=== PATIENT | male | born 1955 | race Caucasian/White ===

== ENCOUNTER 2018-06-18 12:57 | Emergency (ER) | payer SELFPAY ==
[~2018-06-18] VITALS: Ht 185.4 cm; Wt 113.0 kg
[2018-06-18] MEDS ORDERED: IBUPROFEN 600MG TABLET PO ONE (15:45)
[2018-06-18 16:07] VITALS: BP 140/70
== END 2018-06-18 16:12 | disposition home or self-care (01) ==
LOC: ER 12:57
DX: K04.7 Periapical abscess without sinus (principal)
CPT/HCPCS: 99283